=== PATIENT | female | born 1945 | race Caucasian/White ===

== ENCOUNTER 2016-11-20 10:57 | Emergency (ER) | payer MEDICARE, BC ==
[~2016-11-20] VITALS: Ht 165.1 cm; Wt 82.0 kg
[2016-11-20 11:02] VITALS: Ht 165.1 cm; Wt 82.0 kg
[2016-11-20] MEDS ORDERED: ASPIRIN 325 MG TAB PO STA (11:34)
[2016-11-20 11:53] LABS: ADD SCAN DIFF NO
--- NOTE | 2016-11-20 11:55 | ERA ---
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 Patient states she was cleaning dishes in the kitchen when she experienced severe, sharp lower chest/ epigastric pain with a tightness feeling to her jaw accompanied by nausea but no vomiting, shortness of breath or diaphoresis. Symptoms were covered by anxiety and lightheadedness. She laid on the couch and symptoms resolved in 3- 4 minutes. Currently asymptomatic. Denies URI symptoms, rhinorrhea or cough. No leg pain or swelling. No chest pain or palpitations. Denies headache, neck or back pain. No skin rash. No fevers or chills. ROS All systems reviewed and are negative except as per history of present illness. Medications Home Meds Reported Medications Nadolol* (Corgard*) 40 Mg Tab, 20 MG PO QAM, #30 TAB 11/20/16 Atorvastatin Calcium* (Atorvastatin Calcium*) 20 Mg Tablet, 20 MG PO QHS, #30 TAB 11/20/16 Allergies Allergies: Coded Allergies: No Known Allergy (Unverified , 11/20/16) PMhx/Soc Reviewed in chart. As per HPI. History of Surgery: Yes (left breast and axillary node sx, right knee sx, hysterectomy) Anesthesia Reaction: No Hx Neurological Disorder: Yes (migraine) Hx Respiratory Disorders: No Hx Cardiac Disorders: Yes ("Leaky valve") Hx Psychiatric Problems: No Hx Miscellaneous Medical Probl: Yes (Hyperlipidemia, diverticulitis) Hx Alcohol Use: No Hx Substance Use: No Hx Tobacco Use: No Smoking Status: Never smoker FmHx Sister: Breast cancer. Father: Intracranial aneurysm. Mother: COPD. No family history of coronary artery disease, sudden cardiac or stroke. Physical Exam Vitals Vital Signs Date Time Temp Pulse Resp B/P Pulse Ox O2 Delivery O2 Flow Rate FiO2 11/20/16 13:15 98.3 55 20 130/73 99 Room Air 11/20/16 11:15 98.3 67 20 149/83 100 Room Air 11/20/16 11:02 98.3 73 20 163/74 99 Physical Exam Const: Alert, no acute distress. Head: Atraumatic Eyes: Normal Conjunctiva ENT: Normal External Ears, Nose and Mouth. Neck: Full range of motion. No JVD. Nontender. Resp: Clear to auscultation bilaterally Cardio: Regular rate and rhythm, no murmurs Chest Wall: No tenderness, ecchymosis or deformity. Status post right lumpectomy. Abd: Soft, non tender, non distended. Normal bowel sounds Skin: No petechiae or rashes Back: No midline or flank tenderness Ext: No cyanosis, or edema. No calf swelling or tenderness. Neur: Awake and alert. Cranial nerves II through XII are grossly intact. No focal deficit. Psych: Normal Mood and Affect Result Diagram: 11/20/16 1140 11/20/16 1140 Results 24 hrs Laboratory Tests Test 11/20/16 11:40 White Blood Count 5.410^3/ul Red Blood Count 4.5710^6/ul Hemoglobin 12.7g/dl Hematocrit 39.6% Mean Corpuscular Volume 86.7fl Mean Corpuscular Hemoglobin 27.8pg Mean Corpuscular Hemoglobin Concent 32.1g/dl Red Cell Distribution Width 14.2% Platelet Count 50915^3/UL Mean Platelet Volume 10.5fl Neutrophils % 46.5% Lymphocytes % 33.1% Monocytes % 14.3% Eosinophils % 5.0% Basophils % 0.9% Nucleated Red Blood Cells % 0.0/100WBC Neutrophils # 2.510^3/ul Lymphocytes # 1.810^3/ul Monocytes # 0.810^3/ul Eosinophils # 0.310^3/ul Basophils # 0.110^3/ul Nucleated Red Blood Cells # 0.010^3/ul Prothrombin Time 12.9Sec Prothrombin Time Ratio 1.0 INR International Normalized Ratio 0.97 Activated Partial Thromboplast Time 29.1Sec Sodium Level 142mmol/L Potassium Level 4.0mmol/L Chloride Level 106mmol/L Carbon Dioxide Level 27mmol/L Anion Gap 13 Blood Urea Nitrogen 24mg/dl Creatinine 0.72mg/dl Glucose Level 93mg/dl Calcium Level 8.7mg/dl Total Bilirubin 0.4mg/dl Direct Bilirubin 0.00mg/dl Indirect Bilirubin 0.4mg/dl Aspartate Amino Transf (AST/SGOT) 23IU/L Alanine Aminotransferase (ALT/SGPT) 38IU/L Alkaline Phosphatase 43IU/L Creatine Kinase 32IU/L Creatine Kinase Index 1.6 Creatinine Kinase MB (Mass) 0.51ng/ml Troponin I < 0.012ng/ml Total Protein 6.5g/dl Albumin 3.6g/dl Globulin 2.90g/dl Albumin/Globulin Ratio 1.24 Current Medications Medications (Trade) Dose Ordered Sig/Julio Route PRN Reason Start Time Stop Time Status Last Admin Dose Admin Aspirin (Aspirin) 325 mg ONCE STAT PO 11/20/16 11:34 11/20/16 11:38 DC IV Flush 10 ml 10 ml STK-MED ONCE .ROUTE 11/20/16 12:27 11/20/16 12:28 DC 11/20/16 12:47 Sodium Chloride 100 ml @ ud STK-MED ONCE .ROUTE 11/20/16 12:27 11/20/16 12:28 DC 11/20/16 12:47 Iohexol (Omnipaque) 100 ml @ ud STK-MED ONCE .ROUTE 11/20/16 12:27 11/20/16 12:28 DC 11/20/16 12:47 Iohexol (Omnipaque 350mg/ ml) 50 ml STK-MED ONCE .ROUTE 11/20/16 12:27 11/20/16 12:28 DC 11/20/16 12:48 Ondansetron HCl (Zofran Inj) 4 mg ER BRIDGE PRN IV NAUSEA AND/OR VOMITING 11/20/16 15:30 11/21/16 15:29 Acetaminophen (Tylenol Tab) 650 mg ER BRIDGE PRN PO MILD PAIN/FEVER 11/20/16 15:30 11/21/16 15:29 IV Flush (NS 3 ml) 3 ml PER PROTOCOL IV 11/20/16 16:00 UNV Lorazepam (Ativan) 0.5 mg Q6H PRN IV ANXIETY 11/20/16 16:00 UNV Ondansetron HCl (Zofran Inj) 4 mg Q6H PRN IV NAUSEA AND/OR VOMITING 11/20/16 16:00 UNV Acetaminophen (Tylenol Tab) 650 mg Q6H PRN PO PAIN LEVEL 1-3 OR FEVER 11/20/16 16:00 UNV Acetaminophen/ Hydrocodone Bitart ([place] (5/325)) 1 tab Q6H PRN PO PAIN LEVEL 4-6 11/20/16 16:00 UNV Morphine Sulfate (morphine) 2 mg Q4H PRN IV PAIN LEVEL 7-10 11/20/16 16:00 UNV Famotidine (Pepcid) 20 mg Q12 PO 11/20/16 21:00 UNV Atorvastatin Calcium (Lipitor) 20 mg QHS PO 11/20/16 21:00 UNV Nadolol (Corgard) 20 mg QAM PO 11/21/16 09:00 UNV Hydralazine HCl (Apresoline) 10 mg Q6H PRN IV SbP>160 11/20/16 16:00 UNV RHYTHM STRIP INTERPRETATION: Time: []. Indication: []. EKG: Time: 11:12. Sinus rhythm. Ventricular rate 61, normal OR and QRS intervals. No acute ST segment elevation or depression. No axis deviation or ectopy. 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 Venous Dopplers of lower extremity are negative for DVT and CT pulmonary angiogram negative for pulmonary embolism. No evidence of aortic dissection or pneumothorax. No acute ischemic EKG changes or elevated troponin. Extensive conversation with the family regarding need for further evaluation including outpatient follow-up versus admission. Although she is at low risk for an acute event her symptoms are concerning and as she is very anxious regarding possible cardiac etiology including but not limited to ischemia or arrhythmia. Patient be admitted to telemetry for further evaluation and management including cardiac echo, serial cardiac enzymes and cardiology consultation. Counseled patient and family regarding diagnosis, diagnostic results and plan for admission. CALLS/CONSULTS: Time 14:30, Dr. Crystal, Recommends admission to telemetry. PATIENT CARE TRANSITIONED: Time: 14:45, Dr. Crystal. Departure Diagnosis: Primary Impression: Chest pain Qualified Code: R07.9 - Chest pain, unspecified type Additional Impressions: Abdominal pain, acute, epigastric Mucinous carcinoma of right breast Hyperlipidemia Qualified Code: E78.5 - Hyperlipidemia, unspecified hyperlipidemia type Condition: Serious BERNICE MARIE MD November 20, 2016 11:54
[2016-11-20] MEDS ORDERED: ATOR20TA38 PO (11:58)
[2016-11-20] MEDS ORDERED: COR40 PO (11:59)
[2016-11-20 12:02] LABS: BASOPHIL # 0.1 10^3/ul (0.0-0.1); BASOPHILS % 0.9 % (0.0-2.0); EOSINOPHILS # 0.3 10^3/ul (0.0-0.5); HEMATOCRIT 39.6 % (37.0-47.0); HEMOGLOBIN 12.7 g/dl (12.0-16.0); LYMPHOCYTES # 1.8 10^3/ul (0.8-2.9); LYMPHOCYTES % 33.1 % (15.0-51.0); MEAN CORPUSCULAR HEMOGLOBIN 27.8 pg (29.0-33.0); MEAN CORPUSCULAR HGB CONC 32.1 g/dl (32.0-37.0); MEAN CORPUSCULAR VOLUME 86.7 fl (82.0-101.0); MEAN PLATELET VOLUME 10.5 fl (7.4-10.4); MONOCYTE # 0.8 10^3/ul (0.3-0.9); MONOCYTES % 14.3 % (0.0-11.0); NEUTROPHIL # 2.5 10^3/ul (1.6-7.5); NEUTROPHILS % 46.5 % (39.0-77.0); PLATELET COUNT 231 10^3/UL (140-415); RED BLOOD COUNT 4.57 10^6/ul (4.20-5.40); RED CELL DISTRIBUTION WIDTH 14.2 % (11.5-14.5); WHITE BLOOD COUNT 5.4 10^3/ul (4.8-10.8)
[2016-11-20 12:09] LABS: ALBUMIN 3.6 g/dl (3.3-4.9); CHLORIDE 106 mmol/L (97-110); SODIUM 142 mmol/L (135-144)
[2016-11-20 12:10] LABS: INR 0.97; PARTIAL THROMBOPLASTIN TIME 29.1 Sec (25.0-35.0); PROTIME 12.9 Sec (12.2-14.2)
[2016-11-20 12:11] LABS: CREATININE 0.72 mg/dl (0.44-1.00)
[2016-11-20 12:12] LABS: ALANINE AMINOTRANSFERASE 38 IU/L (13-69); ALBUMIN/GLOBULIN RATIO 1.24; ALKALINE PHOSPHATASE 43 IU/L (42-121); ANION GAP 13 (8-16); ASPARTATE AMINO TRANSFERASE 23 IU/L (15-46); BILIRUBIN,INDIRECT 0.4 mg/dl (0-1.1); BILIRUBIN,TOTAL 0.4 mg/dl (0.2-1.3); BLOOD UREA NITROGEN 24 mg/dl (7-20); CARBON DIOXIDE 27 mmol/L (21-31); GLUCOSE 93 mg/dl (70-220); TOTAL PROTEIN 6.5 g/dl (6.1-8.1)
[2016-11-20 12:13] LABS: CALCIUM 8.7 mg/dl (8.4-10.2); CREATINE KINASE 32 IU/L (23-200)
--- NOTE | 2016-11-20 12:18 | RADRPT ---
PROCEDURE: XR Chest. CLINICAL INDICATION: Chest pain. TECHNIQUE: Single frontal view. COMPARISON: None. FINDINGS: The lungs are clear. The heart size is normal. There is no pleural effusion or pneumothorax. There is a plate and screws in the lower cervical spine. IMPRESSION: 1. Prior lower cervical spine surgery. 2. Otherwise normal chest radiograph. RPTAT: QQ .Romeo Julien MD, MD Date Time Electronically viewed and signed by .Romeo Julien MD, on 11/20/2016 12:17 .R/
[2016-11-20 12:21] LABS: CK-MB 0.51 ng/ml (0.0-2.4)
[2016-11-20 12:24] LABS: TROPONIN-I < 0.012 ng/ml (0.00-0.12)
[2016-11-20 12:26] LABS: TROPONIN-I < 0.012 ng/ml (0.00-0.12)
[2016-11-20] MEDS ORDERED: IOHEXOL 350MG/ML 50 ML BTL ONE (12:27)
[2016-11-20] MEDS ORDERED: SOD CHLORIDE 0.9% 100 ML ONE (12:27)
[2016-11-20] MEDS ORDERED: IOHEXOL 100 ML ONE (12:27)
--- NOTE | 2016-11-20 12:56 | RADRPT ---
PROCEDURE: US Lower extremity Venous. CLINICAL INDICATION: Patient experiencing Chest Pain TECHNIQUE: Multiple sonographic images of the bilateral lower extremity deep venous system was obt ained utilizing grayscale, color-flow, compressive sonography and doppler imaging with augmentation. The images were reviewed on a PACS workstation. COMPARISON: None. FINDINGS: There is normal compressibility and flow within the bilateral common femoral, deep femoral, superfic ial femoral, posterior tibial, peroneal and popliteal veins. IMPRESSION: No sonographic evidence for deep venous thrombosis. RPTAT: HSM .Elzbieta Gibbs MD, Date Time Electronically viewed and signed by .Elzbieta Gibbs MD, on 11/20/2016 12:56 .M/
--- NOTE | 2016-11-20 13:09 | RADRPT ---
PROCEDURE: CTA Chest and pulmonary angiogram. CLINICAL INDICATION: Chest pain and shortness of breath. TECHNIQUE: CT scan of the chest and CT pulmonary angiogram was performed on a multidetector high-r esolution CT scanner. High-resolution thin slice coronal and sagittal imaging was obtained from the axial source images. 3-D volumetric rendered post processing was performed as well. The patient w as examined following the uncomplicated intravenous administration of 100 cc of Omnipaque-300. The i mages were reviewed on a PACS workstation. The total exam CTDI equals 15.76 mGy, and the total exam DLP equals 605.17 mGy-cm. COMPARISON: No prior studies are available for comparison. FINDINGS: CT chest: There is a focal 9 mm pleural-based nodule along the inferior aspect of the right upper lobe. No fo tierra opacification, effusion, pneumothorax, edema, or nodules are seen. The central tracheobronchial tree is clear. The mediastinum is unremarkable without evidence for mass or lymphadenopathy. There is mild focal d ilatation of the aorta distal to the takeoff of the left brachiocephalic artery. The vascular struc tures of the mediastinum are otherwise normal in course and caliber. The heart size is normal witho ut pericardial thickening or effusion. The axillary, subpectoral, and supraclavicular regions are u nremarkable. The surrounding chest wall is unremarkable. Imaging obtained through the upper abdomen is notable for 2 isodense/ hypodense lesions in the right left kidney which are likely retail representative of cysts and can be confirmed with renal ultrasound.. The adrenal glands are symmetrically normal. The osseous structures are remarkable for degenerative spondylosis of the spine. CT pulmonary angiogram: No thrombus, clot, filling defect, or pulmonary web is identified. The pulmonary arteries are mariluz l in caliber and morphology. No filling defect is present to suggest pulmonary embolism. There is no evidence for pulmonary arterial hypertension. IMPRESSION: 1. Unremarkable CT pulmonary angiogram. No evidence for pulmonary embolism. 2. Focal 9 mm pleural-based nodule along the inferior aspect of the right upper lobe. 3. Bilateral ISO dense/hypodense lesions in the right and left kidney. Findings may be representat xuan of hemorrhagic cysts and can be confirmed with renal ultrasound 4. Minimal focal dilatation of the aorta post takeoff of the left brachiocephalic artery. However t he measurements are within normal limits and not considered aneurysmal. RPTAT: HSM .Elzbieta Gibbs MD, MD Date Time Electronically viewed and signed by .Elzbieta Gibbs MD, MD on 11/20/2016 13:09 .Cecilia/
[2016-11-20] MEDS ORDERED: ONDANSETRON 4 MG INJ IV PRN ×2 (15:30→16:00)
[2016-11-20] MEDS ORDERED: ACETAMINOPHEN 325 MG TAB PO PRN ×2 (15:30→16:00)
[2016-11-20 16:00] VITALS: BP 145/81; PULSE 54; RESP 20; TEMP 98.4
[2016-11-20] MEDS ORDERED: hydrALAzine 20 MG INJ IV PRN (16:00)
[2016-11-20] MEDS ORDERED: NACL 0.9% 3 ML SYG IV SCH (16:00)
[2016-11-20] MEDS ORDERED: LORAZEPAM 2 MG INJ IV PRN (16:00)
[2016-11-20] MEDS ORDERED: morphine 2 MG INJ IV PRN (16:00)
[2016-11-20] MEDS ORDERED: HYDROCODONE/APAP (5/325) TAB PO PRN (16:00)
[2016-11-20] MEDS ORDERED: ATORVASTATIN 20 MG TAB PO SCH (21:00)
[2016-11-20] MEDS ORDERED: FAMOTIDINE 20 MG TAB PO SCH (21:00)
[2016-11-21] MEDS ORDERED: NADOLOL 40 MG TAB PO SCH (09:00)
== END 2016-11-20 16:59 | disposition left against medical advice (07) ==
LOC: E/R 10:57
DX: R07.9 Chest pain, unspecified (principal); R10.13 Epigastric pain; C50.911 Malignant neoplasm of unspecified site of right female breast; E78.5 Hyperlipidemia, unspecified
CPT/HCPCS: 36415; 71010; 71275; 80053; 82550; 82553; 82652; 83036; 84439; 84443; 84484; 85025; 85610; 85730; 93005; 93970; 99285; Q9967